=== PATIENT | male | born 1990 | race Caucasian/White ===

== ENCOUNTER 2017-08-30 19:26 | Emergency (ER) | payer MEDICAID ==
[2017-08-30 20:29] LABS: BASOPHILS 0.4 % (0-2); EOSINOPHILS 5.8 % (0-7); HEMATOCRIT 42.1 % (42.0-54.0); HEMOGLOBIN 14.8 g/dL (13.5-17.5); IMMATURE GRANULOCYTES 0.3 % (0-5); LYMPHOCYTES 24.4 % (15-50); MCH 29.1 pg (26.0-34.0); MCHC 35.2 g/dL (31.0-37.0); MCV 82.9 fL (80.0-100.0); MEAN PLATELET VOLUME 10.8 fL (7.4-10.4); MONOCYTES 14.1 % (2-11); RBC 5.08 10x6/uL (4.20-6.10); RDW 12.8 % (11.5-14.5)
[2017-08-30 20:30] LABS: PLATELET COUNT 277 10x3/uL (130-400)
[2017-08-30 20:34] LABS: ALBUMIN 3.9 g/dL (3.4-5.0); ALKALINE PHOSPHATASE 64 U/L (46-116); ALT (SGPT) 54 U/L (10-68); BILIRUBIN - TOTAL 0.36 mg/dL (0.2-1.3); CALC OSMOLALITY 275 mosm/kg (275-300); CALCIUM 9.2 mg/dL (8.5-10.1); CARBON DIOXIDE 29.3 mmol/L (21.0-32.0); CHLORIDE - SERUM 102 mmol/L (98-107); CREATININE - SERUM 1.2 mg/dL (0.6-1.3); GLUCOSE 82 mg/dL (74-106); PROTEIN - SERUM 7.4 g/dL (6.4-8.2); SODIUM 139 mmol/L (136-145); UREA NITROGEN 9 mg/dL (7-18); eGFR NON AFRICAN AMERICAN 78 mL/min (90-120)
[2017-08-30 20:43] LABS: CKMB 1.6 U/L (0.0-3.6)
[2017-08-30 20:49] LABS: TROPONIN-I < 0.017 ng/mL (0.000-0.060)
== END 2017-08-30 23:48 | disposition home or self-care (01) ==
LOC: D.ER 19:26
PROVIDERS: Family Medicine
DX: R07.89 Other chest pain (principal)

== ENCOUNTER 2017-12-20 11:56 | Emergency (ER) | payer MEDICARE ==
[2011-02-17 07:21] VITALS: BMI 27.2
== END 2017-12-20 15:38 | disposition home or self-care (01) ==
LOC: D.ER 11:56
DX: M51.26 Other intervertebral disc displacement, lumbar region (principal); M62.830 Muscle spasm of back